=== PATIENT | female | born 1970 | race Caucasian/White ===

== ENCOUNTER 2017-01-18 14:18 | Emergency (ER) | payer BC ==
--- NOTE | ~2017-01-18 | CT71 ---
[facility] A Service of [facility] RADIOLOGY TEXT RESULTS PATIENT: JENNIFER PICKENS LOCATION: [facility] : 74 UNIT #: [id number] AGE: [address]: FOSTER CASTREJON SEX: F ORDER DR: [id number] [facility] [address] [place], [place] [address] [id number] E MR#: [id number] #: [id number] NAME: JENNIFER PICKENS. : 1970 SEX: F STUDY DATE/TIME: 01/18/2017 17:18 UNIT: [facility] ROOM: STUDY DESCRIPTION: CT Head Wo Contrast Attending Physician: Foster Castrejon A.P.R.N. Ordering Physician: Mirza Castrejon Primary Care Physician: Yani Park M.D. MEDICAL IMAGING REPORT This report is preliminary unless electronic signature is present EXAM CT head, noncontrast, 01/18/2017 HISTORY 46-year-old female in the ED after a head injury. She fell earlier this morning, striking her head. She has pain and bruising to the right maxilla and orbit region. She complains of headache. TECHNIQUE CT examination of the head without IV contrast. This CT exam was performed with one or more of the following radiation dose reduction techniques: automatic control, adjustment of mA and/or kV according to patient size, and iterative reconstruction. FINDINGS Small right supraorbital scalp contusion. No visible skull fracture. No acute intracranial abnormality is identified. No evidence of intracranial hemorrhage, mass, mass effect, cerebral edema or hydrocephalus. 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 There is also an old lacunar type infarct in the left basal ganglia. IMPRESSION 1. Right supraorbital scalp contusion. No visible skull fracture. 2. No acute intracranial abnormality. 3. Focal encephalomalacia in the left anterior frontal lobe likely related to old injury or infarct. There is also a chronic lacunar infarct in the left basal ganglia. Dictated by... [facility] A Service of [facility] RADIOLOGY TEXT RESULTS PATIENT: JENNIFER PICKENS LOCATION: [facility] : 74 UNIT #: [id number] AGE: [address]: FOSTER CASTREJON SEX: F ORDER DR: Willy Greenberg M.D. THIS IS AN ELECTRONICALLY VERIFIED REPORT Willy Greenberg M.D. at 01/19/2017 12:52 PM MIGUELW/capo TD: 01/19/2017 04:30 JOB #: [id number] MEDICAL IMAGING REPORT Page 1 of 1 COPY
--- NOTE | ~2017-01-18 | CT101 ---
[facility] A Service of [facility] RADIOLOGY TEXT RESULTS PATIENT: JENNIFER PICKENS LOCATION: [facility] : 74 UNIT #: [id number] AGE: [address]: FOSTER CASTREJON SEX: F ORDER DR: [id number] [facility] [address] [place], [place] [address] [id number] E MR#: [id number] Acc #: [id number] NAME: JENNIFER PICKENS. : 1970 SEX: F STUDY DATE/TIME: 01/18/2017 17:23 UNIT: [facility] ROOM: STUDY DESCRIPTION: CT Maxillofacial Area Wo Cont Attending Physician: Foster Castrejon A.P.R.N. Ordering Physician: Mirza Castrejon Primary Care Physician: Yani Park M.D. MEDICAL IMAGING REPORT This report is preliminary unless electronic signature is present EXAM CT facial bones 01/18/2017 HISTORY 46-year-old female in the ED with right-side facial injury. She fell early this morning, striking right side of face. She complains of right cheek and orbit region bruising and pain. Headache. TECHNIQUE Thin-section axial CT images were obtained through the orbits, maxillofacial skull and mandible. Multiplanar images were reconstructed. This CT exam was performed with one or more of the following radiation dose reduction techniques: automatic control, adjustment of mA and/or kV according to patient size, and iterative reconstruction. FINDINGS The examination shows right preorbital and supraorbital scalp hematoma. No fluid or air is seen within the right orbit, the right globe is intact. There is no evidence of acute fracture involving the orbits, maxillofacial skull or mandible. No TMJ dislocation. Note is made of severe dental caries involving multiple bilateral maxillary and mandibular teeth. Of particular note, there is severe periapical disease within the left mandible surrounding fragments of left mandibular 1st molar. Dental or oral surgical referral is recommended. IMPRESSION 1. No evidence of acute fracture involving the orbits, maxillofacial skull or mandible. 2. Subcutaneous hematoma in the right preorbital and supraorbital region. No fluid or air within the orbit. No right orbital fracture. 3. Severe dental caries involving multiple bilateral maxillary and STS. [facility] A Service of [facility] RADIOLOGY TEXT RESULTS PATIENT: JENNIFER PICKENS LOCATION: [facility] : 74 UNIT #: [id number] AGE: [address]: FOSTER CASTREJON SEX: F ORDER DR: mandibular teeth as detailed above. Particular note is made of severe periapical disease surrounding fragments of the left first mandibular molar. Dictated by... Willy Greenberg M.D. THIS IS AN ELECTRONICALLY VERIFIED REPORT Willy Greenberg M.D. at 01/19/2017 12:52 PM CHIP/capo TD: 01/19/2017 04:34 JOB #: [id number] MEDICAL IMAGING REPORT Page 1 of 1 COPY
[~2017-01-18 14:18] MED LIST: ALPRAZOLAM PO; BACTRIM DS TABL1 TAB PO; CERTAGEN PO; CLEOCIN PO; LEXAPRO PO; LORTAB 10/500 T1 TAB PO
== END 2017-01-18 19:30 | disposition home or self-care (01) ==
LOC: CED 14:18 → CFTX 14:18
DX: S09.90XA Unspecified injury of head, initial encounter (principal); S00.83XA Contusion of other part of head, initial encounter; F17.200 Nicotine dependence, unspecified, uncomplicated; W01.0XXA Fall on same level from slipping, tripping and stumbling without subsequent striking against object, initial encounter; Y92.009 Unspecified place in unspecified non-institutional (private) residence as the place of occurrence of the external cause
CPT/HCPCS: 70450; 70486; 84703; 96372; 99283; J1885